=== PATIENT | female | born 1965 | race Caucasian/White ===

== ENCOUNTER → 2016-05-02 | Outpatient (CLI) | payer MEDICARE, OTHER ==
[~2016-05-02] MED LIST: ACET-784 PO; ALPR0.5T PO; ASCO250T7 PO; ASPI81TA2 PO; BALS60OI TP; BENZ1TAB10 PO; BISA-72 PO; CHLO100T23 PO; CYAN500 PO; DOCU250C91 PO; DSS100 PO; FAMO-135 PO; FAMO20 PO; FE PR; FERR-89 PO; FOLI1TAB15 PO; GUAI118S23 PO; HYD50 PO; HYDR-3112 PO; HYDR8TAB2 PO; IOVERSOL 350 MG/ML 100 ML VIAL ONE; IPRA3AMP4 IH; LACT1TAB11 PO; LEVO125T11 PO; MELA5TAB12 PO; MOM30 PO; PANT40TA25 PO; RISP3 PO; RISP4 PO; SERT100T12 PO; SERT50TA12 PO; SODIUM CHLORIDE 0.9% 100 ML ONE; SPIR50TA3 PO; TIZA6CAP7 PO; TORS100T16 PO; TRAZ-147 PO; VENL-193 PO; VENL-67 PO; VITAD1000 PO; ZOLP10TA2 PO; [UNRECOGNIZED DRUG - CODE] PO
== END | disposition home or self-care (01) ==
LOC: RADMN 09:29
PROVIDERS: ATTEND Internal Medicine
DX: K80.50 Calculus of bile duct without cholangitis or cholecystitis without obstruction (principal); I51.7 Cardiomegaly; R16.2 Hepatomegaly with splenomegaly, not elsewhere classified; R18.8 Other ascites; R60.1 Generalized edema; J98.11 Atelectasis; J90 Pleural effusion, not elsewhere classified; N20.0 Calculus of kidney; K42.9 Umbilical hernia without obstruction or gangrene; Z95.1 Presence of aortocoronary bypass graft; Z90.49 Acquired absence of other specified parts of digestive tract
CPT/HCPCS: 74176; J7050; Q9967